=== PATIENT | female | born 1985 | race Hispanic/Latino ===

== ENCOUNTER 2017-08-05 12:01 | Emergency (ER) | payer SELFPAY ==
[~2017-08-05] VITALS: Ht 152.4 cm; Wt 86.0 kg
[~2017-08-05 12:01] MED LIST: AMOXICILLIN875 MG OR; HYDROXYCUT; NO MEDS; PRENATAL1 TAB OR
[2017-08-05 12:50] LABS: HEMATOCRIT 41.3 % (37.0-47.0); HEMOGLOBIN 13.2 g/dl (12.0-16.0); IMMATURE GRANULOCYTES 0.2 % (0.0-1.0); MEAN CELL VOLUME 80.8 fL CALC (80.0-100.0); MEAN CORPUSCULAR HGB 25.8 pG CALC (26.0-32.0); NEUT# 5.27 thou/uL (2.00-7.15); RED BLOOD COUNT 5.11 mill/uL (4.20-5.60); RED CELL DISTRI WIDTH 13.4 % (11.5-15.5)
[2017-08-05 12:59] LABS: ALBUMIN 4.6 g/dL (3.2-5.0); ALKALINE PHOSPHATASE 85 u/l (38-126); AMYLASE 33 u/l (30-110); ANION GAP 16 (6-22 (CALC)); BILIRUBIN, TOTAL 0.7 mg/dL (0.0-1.4); BUN 11 mg/dL (7-17); BUN/CREATININE RATIO 24 (12-20 (CALC)); CALCIUM 9.4 mg/dL (8.4-10.2); CARBON DIOXIDE 25 mmol/l (22-30); CHLORIDE 104 mmol/l (95-108); CREATININE 0.5 mg/dL (0.5-1.0); GFR > 60 ML/MIN (>=60 (CALC)); GFR FOR AFR.AMER. > 60 ML/MIN (>=60 (CALC)); GLUCOSE 107 mg/dL (65-105); LIPASE 59 u/l (23-300); SGOT/AST 82 u/l (14-36); SGPT/ALT 136 u/l (9-52); SODIUM 141 mmol/l (137-146); TOTAL PROTEIN 8.1 g/dL (6.3-8.2)
[2017-08-05 13:01] LABS: URINE BILIRUBIN - DIPSTICK NEGATIVE (NEGATIVE); URINE BLOOD DIPSTICK NEGATIVE (NEGATIVE); URINE CLARITY CLEAR; URINE COLOR YELLOW; URINE GLUCOSE - DIPSTICK NEGATIVE (NEGATIVE); URINE KETONE NEGATIVE (NEGATIVE); URINE LEUK ESTERASE NEGATIVE (NEGATIVE); URINE NITRITE - DIPSTICK NEGATIVE (Negative); URINE PH 6.5 (4.5-8.0); URINE PROTEIN - DIPSTICK NEGATIVE (NEG-TRACE); URINE UROBILINOGEN - DIPSTICK 0.2 E.U./dL (0.2)
[2017-08-05 13:07] LABS: BARBITURATES NEGATIVE (NEGATIVE); COCAINE NEGATIVE (NEGATIVE); METHADONE NEGATIVE (NEGATIVE); OXCYCODONE NEGATIVE (NEGATIVE); TETRAHYDROCANNABIONOL NEGATIVE (NEGATIVE); TRICYLIC ANTIDEPRESSANTS NEGATIVE (NEGATIVE)
[2017-08-05 13:11] LABS: MYOGLOBIN 19 ng/mL (0 - 62)
[2017-08-05] MEDS ORDERED: METFORMIN500 MG PO (13:46)
[2017-08-05 17:34] VITALS: BP 127/75
== END 2017-08-05 17:35 | disposition home or self-care (01) | DRG 313 ==
LOC: ED 12:01
PROVIDERS: Emergency Medicine
DX: R07.89 Other chest pain (principal); E11.9 Type 2 diabetes mellitus without complications; F41.9 Anxiety disorder, unspecified

== ENCOUNTER 2017-09-12 17:18 | Emergency (ER) | payer OTHER ==
[~2017-09-12] VITALS: Ht 152.4 cm; Wt 80.0 kg
[~2017-09-12 17:18] MED LIST changes: +METFORMIN500 MG PO
[2017-09-12] MEDS ORDERED: TRIAMCINOLON0.025 % EX (17:50)
[2017-09-12 17:55] VITALS: BP 128/82
== END 2017-09-12 17:55 | disposition home or self-care (01) | DRG 607 ==
LOC: ED 17:18
DX: L24.89 Irritant contact dermatitis due to other agents (principal); Y92.79 Other farm location as the place of occurrence of the external cause

== ENCOUNTER 2021-04-12 17:10 | Emergency (ER) | payer SELFPAY ==
[~2021-04-12] VITALS: Ht 152.4 cm; Wt 83.4 kg
[~2021-04-12 17:10] MED LIST changes: +TRIAMCINOLON0.025 % EX
[2021-04-12 17:12] VITALS: BP 144/75
[2021-04-12] MEDS ORDERED: CHOLESTEROL (17:43)
[2021-04-12] MEDS ORDERED: METFORMIN500 M2 PO (17:43)
[2021-04-12 18:19] LABS: URINE BILIRUBIN - DIPSTICK NEGATIVE (NEGATIVE); URINE BLOOD DIPSTICK NEGATIVE (NEGATIVE); URINE COLOR YELLOW; URINE GLUCOSE - DIPSTICK NEGATIVE (NEGATIVE); URINE KETONE NEGATIVE (NEGATIVE); URINE LEUK ESTERASE NEGATIVE (NEGATIVE); URINE PH 6.5 (4.5-8.0); URINE PROTEIN - DIPSTICK NEGATIVE (NEG-TRACE); URINE UROBILINOGEN - DIPSTICK 0.2 E.U./dL (0.2)
[2021-04-12 18:22] LABS: URINE NITRITE - DIPSTICK NEGATIVE (Negative)
[2021-04-12 18:26] LABS: HEMATOCRIT 35.7 % (37.0-47.0); IMMATURE GRANULOCYTES 0.1 % (0.0-5.0); MEAN CELL VOLUME 79.3 fL CALC (80.0-100.0); MEAN CORPUSCULAR HGB 24.9 pG CALC (26.0-32.0); MEAN CORPUSCULAR HGB CONC 31.4 g/dL CAL (32.0-36.0); NEUT# 6.9 thou/uL (2.00-7.15); RED BLOOD COUNT 4.5 mill/uL (4.20-5.60); RED CELL DISTRI WIDTH 14.3 % (11.5-15.5)
[2021-04-12 18:34] LABS: ACT PARTIAL THROMBO TIME 22.3 SECONDS (20.0-32.5); PROTHROMBIN TIME 10.3 SECONDS (9.0-12.5)
[2021-04-12 18:36] LABS: HEMOGLOBIN 11.2 g/dl (12.0-16.0)
[2021-04-12 18:46] LABS: ALBUMIN 4.1 g/dL (3.2-5.0); ALKALINE PHOSPHATASE 86 u/l (38-126); ANION GAP 13 (6-22 (CALC)); BUN 17 mg/dL (7-17); BUN/CREATININE RATIO 28 (12-20 (CALC)); CARBON DIOXIDE 27 mmol/l (22-30); CHLORIDE 100 mmol/l (95-108); CREATININE 0.6 mg/dL (0.5-1.0); ETHYL ALCOHOL 0 mg/dl (0-30); GFR > 60 ML/MIN (>=60 (CALC)); GFR FOR AFR.AMER. > 60 ML/MIN (>=60 (CALC)); LIPASE 41 u/l (23-300); POTASSIUM 3.5 mmol/l (3.5-5.1); SGOT/AST 21 u/l (14-36); SODIUM 135 mmol/l (137-146); TOTAL PROTEIN 7.6 g/dL (6.3-8.2)
[2021-04-12 18:47] LABS: BILIRUBIN, TOTAL 0.3 mg/dL (0.0-1.4)
[2021-04-12 19:16] LABS: TSH, 3RD GENERATION 2.02 uIU/mL (0.47 - 4.68)
== END 2021-04-12 19:35 | disposition home or self-care (01) | DRG 93 ==
LOC: ED 17:10
DX: R20.0 Anesthesia of skin (principal); R51.9 Headache, unspecified; F14.10 Cocaine abuse, uncomplicated

== ENCOUNTER 2022-12-20 13:18 | Emergency (ER) | payer OTHER ==
[~2022-12-20] VITALS: Ht 154.9 cm; Wt 65.0 kg
[~2022-12-20 13:18] MED LIST changes: +CHOLESTEROL; +METFORMIN500 M2 PO
[2022-12-20 13:37] VITALS: BP 125/86
[2022-12-20 13:45] VITALS: BP 146/92
[2022-12-20 14:16] VITALS: BP 127/79
[2022-12-20] MEDS ORDERED: TRIAMCINOLON0.11 EX (14:29)
[2022-12-20 14:37] VITALS: BP 127/79
== END 2022-12-20 14:46 | disposition home or self-care (01) | DRG 607 ==
LOC: ED 13:18
DX: L24.5 Irritant contact dermatitis due to other chemical products (principal)